=== PATIENT | male | born 1955 | race Caucasian/White ===

== ENCOUNTER 2022-09-12 22:21 | Observation (INO) | payer MEDICARE ==
[~2022-09-12] VITALS: Ht 177.8 cm; Wt 81.6 kg
[2022-09-12 22:46] LABS: BASOPHILS % 0.2 % (0.0-1.0); EOSINOPHILS # (AUTO) 0.1 (0.0-0.4); HEMATOCRIT 40.8 % (38.2-49.6); LYMPHOCYTES # (AUTO) 0.4 (1.0-3.2); LYMPHOCYTES % 4.5 % (18.0-39.1); MEAN CORPUSCULAR HEMOGLOBIN 30.1 pg (28-32); MEAN CORPUSCULAR HGB CONC 31.9 g/dL (31-35); MEAN CORPUSCULAR VOLUME 94.4 fL (81-99); MONOCYTES % 11.2 % (4.4-11.3); NEUTROPHILS # (AUTO) 7.5 (2.1-6.9); NEUTROPHILS % 82.9 % (38.7-80.0); PLATELET COUNT 272 x10e3/uL (140-360); RED BLOOD COUNT 4.32 x10e6/uL (4.3-5.7); RED CELL DISTRIBUTION WIDTH 13.4 % (11.7-14.4)
[2022-09-12 23:02] LABS: ALBUMIN 3.8 g/dL (3.5-5.0); ANION GAP 15.6 mmol/L (8-16); CALCIUM 9.8 mg/dL (8.4-10.2); CREATININE, SERUM 0.82 mg/dL (0.72-1.25); POTASSIUM 4.6 mmol/L (3.5-5.1)
[2022-09-12 23:03] LABS: LIPASE 11 U/L (8-78)
[2022-09-13] MEDS ORDERED: ASPIRIN 81 MG CHEW TAB PO ONE
[2022-09-13] MEDS ORDERED: ASPIRIN 325 MG TAB PO ONE
[2022-09-13 00:50] VITALS: BP 98/64
[2022-09-13] MEDS ORDERED: ASPIRIN81 MG PO (02:23)
[2022-09-13] MEDS ORDERED: FINASTERIDE5 MG PO (02:23)
[2022-09-13] MEDS ORDERED: METOPROLOL TART25 MG PO (02:23)
[2022-09-13] MEDS ORDERED: FAMOTIDINE20 MG PO (02:23)
[2022-09-13] MEDS ORDERED: METFORMIN HCL500 MG PO (02:23)
[2022-09-13] MEDS ORDERED: SERTRALINE HCL50 MG PO (02:23)
[2022-09-13] MEDS ORDERED: BUPRENORP-NALO1 EACH SL (02:23)
[2022-09-13] MEDS ORDERED: MAGNESIUM OXID400 MG PO (02:23)
[2022-09-13] MEDS ORDERED: BRILINTA90 MG PO (02:23)
[2022-09-13] MEDS ORDERED: LIPITOR20 MG PO (02:23)
[2022-09-13] MEDS ORDERED: CENTRUM SILVER1 EAC6 PO (02:23)
[2022-09-13 06:14] LABS: CREATINE KINASE 21 IU/L (30-200)
[2022-09-13] MEDS ORDERED: ACETAMINOPHEN 325 MG TAB PO PRN (07:30)
[2022-09-13 08:14] VITALS: BP 102/61
[2022-09-13 08:37] VITALS: BP 102/61
[2022-09-13 12:42] VITALS: BP 99/57
== END 2022-09-13 14:19 | disposition left against medical advice (07) ==
LOC: ER 22:30 → ERHOLD 09-13 → MED/SURG 09-13 00:35
PROVIDERS: ADMIT Family Medicine; ATTEND Family Medicine
DX: R07.89 Other chest pain (principal); R07.81 Pleurodynia; E78.5 Hyperlipidemia, unspecified; E11.9 Type 2 diabetes mellitus without complications; F32.A Depression, unspecified; C22.8 Malignant neoplasm of liver, primary, unspecified as to type; Z95.5 Presence of coronary angioplasty implant and graft; I25.10 Atherosclerotic heart disease of native coronary artery without angina pectoris; M25.512 Pain in left shoulder; M25.511 Pain in right shoulder; I25.2 Old myocardial infarction; Z86.73 Personal history of transient ischemic attack (TIA), and cerebral infarction without residual deficits; Z85.12 Personal history of malignant neoplasm of trachea; Z88.0 Allergy status to penicillin; Z95.0 Presence of cardiac pacemaker; F17.210 Nicotine dependence, cigarettes, uncomplicated; Z20.822 Contact with and (suspected) exposure to COVID-19; Z79.82 Long term (current) use of aspirin; Z79.84 Long term (current) use of oral hypoglycemic drugs
CPT/HCPCS: 36415 ×2; 71045; 80053; 82550; 82553; 83690; 84484 ×2; 85025; 87400; 94799; 99284; G0378; U0002